=== PATIENT | female | born 1945 | race Caucasian/White ===

== ENCOUNTER 2017-02-14 19:01 | Inpatient (IN) | payer MEDICARE, OTHER ==
[~2017-02-14] VITALS: Ht 157.5 cm; Wt 87.4 kg
[~2017-02-14 19:01] MED LIST: AMI25 PO; BENA40TA54 PO; METF-480 PO; SITA100T8 PO
[2017-02-14] MEDS ORDERED: SODIUM CHLORIDE 0.9% 1L BAG IV* STA (19:31)
[2017-02-14] MEDS ORDERED: ACETAMINOPHEN 500 MG TAB PO STA (19:45)
[2017-02-14 19:53] LABS: ADD UMIC YES; UR ASCORBIC ACID NEGATIVE (NEGATIVE); UR BACTERIA FEW /HPF (NONE SEEN); UR BILIRUBIN (Dip) NEGATIVE (NEGATIVE); UR BLOOD (Dip) 1+ mg/dL (NEGATIVE); UR CLARITY SLIGHTLY CLOUDY (CLEAR); UR COLOR YELLOW (YELLOW); UR GLUCOSE (Dip) 3+ mg/dL (NEGATIVE); UR KETONES (Dip) NEGATIVE (NEGATIVE); UR LEUKOCYTE ESTERASE (Dip) 2+ Leu/ul (NEGATIVE); UR NITRITE (Dip) POSITIVE (NEGATIVE); UR RBC 2 /HPF (0-5); UR TOTAL PROTEIN (Dip) NEGATIVE (NEGATIVE); UR UROBILINOGEN (Dip) NEGATIVE (NEGATIVE)
--- NOTE | 2017-02-14 19:59 | ERA ---
ER Documentation Chief Complaint Date/Time DATE: 02/14/17 TIME: 19:55 Chief Complaint DIFFUSED ABD PAIN/BODYACHE/FEVER/MALAISE X3 DAYS HPI This is a very pleasant 71-year-old Citizen Of [place]-speaking female with a known history of hypertension, hypercholesterolemia and rwy-amldhak-dgrieaull diabetes mellitus. The patient indicates for the past 3 days she has had generalized myalgias malaise with a tactile fever and shaking chills. She complains of epigastric abdominal pain at the onset of her symptoms. She states the epigastric pain is a sharp shooting pain, persistent and does not radiate to the back. The patient indicated she did not take any analgesic medication at home. She never had any similar symptoms in the past. She does indicate that she also developed left lower quadrant abdominal pain several hours prior to arrival. She denies any diarrhea or constipation. She has had no hemoptysis hematemesis or melanotic stools. She states she has had a decrease in appetite secondary to the pain which is 10 out of 10 in intensity. She has no shortness of breath at rest or exertion and no recent travel. She has not developed any rashes. She denies any shortness of breath at rest or exertion. She denies any recent remote blunt or penetrating abdominal wall trauma no previous surgical history of the abdomen. She has not had a productive or nonproductive cough. She has no frequency urgency or dysuria no gross hematuria. She does state that food exacerbates her pain. ROS All systems reviewed and are negative except as per history of present illness. Medications Home Meds Reported Medications Sitagliptin* (Januvia*) 100 Mg Tablet, 100 MG PO DAILY 01/07/13 Benazepril Hcl* (Lotensin*) 40 Mg Tablet, 40 MG PO DAILY 01/07/13 Amitriptyline Hcl* (Elavil*) 25 Mg Tab, 25 MG PO HS 01/07/13 Metformin* (Glucophage*) 850 Mg Tablet, 850 MG PO TID 01/07/13 Allergies Allergies: Coded Allergies: No Known Drug Allergy (Verified Allergy, Mild, 01/07/13) PMhx/Soc History of Surgery: No Anesthesia Reaction: No Hx Neurological Disorder: No Hx Respiratory Disorders: No Hx Cardiac Disorders: Yes (HTN) Hx Psychiatric Problems: No Hx Miscellaneous Medical Probl: Yes (DM) Hx Alcohol Use: No Hx Substance Use: No Hx Tobacco Use: No Smoking Status: Never smoker Physical Exam Vitals Vital Signs Date Time Temp Pulse Resp B/P Pulse Ox O2 Delivery O2 Flow Rate FiO2 02/14/17 22:49 98.6 73 16 109/59 98 Room Air 02/14/17 20:25 100.3 93 16 133/70 97 Room Air 02/14/17 20:13 Nasal Cannula 02/14/17 19:09 103.1 111 29 161/79 98 Physical Exam Constitutional:Well-developed. Well-nourished. He appear to be in significant amount of discomfort. HEENT:Normocephalic. Atraumatic.Pupils were equal round reactive to light. Moist mucous membranes.No tonsillar exudates. Neck: No nuchal rigidity. No lymphadenopathy. No posterior cervical spine tenderness or step-offs. Respiratory: Not using accessory muscles of respiration.Lungs were clear to auscultation bilaterally. No rhonchi. No rales. No wheezing. Cardiovascular: Regular rate regular rhythm.No murmurs. No rubs were appreciated.S1, S2 normal. Distal pulses are palpable 2+ bilaterally. GI: Abdomen was obese so exam is limited due to body habitus. Reproducible epigastric tenderness and tenderness in the left lower quadrant. Non Distended. No pulsatile abdominal masses or bruits. No rebound. No guarding. Bowel sounds were present and normal. Muscle skeletal: Full range of motion of both the upper and lower extremities bilaterally.Normal muscle tone.No assymetrical calf tenderness or swelling. Skin: No petechia, no purpura. No lesions on the palms or the soles of the feet. No maculopapular rash. NEURO: Patient was alert, awake, orientated x3.No facial droop. Gait observed and normal with no ataxia.Speech had regular rate and rhythm. No focal neurological deficits. Result Diagram: 02/14/17194402/14/171944 Results 24 hrs Laboratory Tests Test 02/14/17 19:40 02/14/17 19:45 02/14/17 21:47 Urine Color YELLOW Urine Clarity SLIGHTLY CLOUDY Urine pH 7.0 Urine Specific [place] 1.010 Urine Ketones NEGATIVEmg/dL Urine Nitrite POSITIVEmg/dL Urine Bilirubin NEGATIVEmg/dL Urine Urobilinogen NEGATIVEmg/dL Urine Leukocyte Esterase 2+Fer/ul Urine Microscopic RBC 2/HPF Urine Microscopic WBC 61/HPF Urine Bacteria FEW/HPF Urine Hemoglobin 1+mg/dL Urine Glucose 3+mg/dL Urine Total Protein NEGATIVEmg/dl White Blood Count 7.210^3/ul Red Blood Count 4.2910^6/ul Hemoglobin 12.5g/dl Hematocrit 35.9% Mean Corpuscular Volume 83.7fl Mean Corpuscular Hemoglobin 29.1pg Mean Corpuscular Hemoglobin Concent 34.8g/dl Red Cell Distribution Width 13.7% Platelet Count 89048^3/UL Mean Platelet Volume 10.2fl Neutrophils % 74.9% Lymphocytes % 17.1% Monocytes % 6.5% Eosinophils % 0.8% Basophils % 0.4% Nucleated Red Blood Cells % 0.0/100WBC Neutrophils # 5.410^3/ul Lymphocytes # 1.210^3/ul Monocytes # 0.510^3/ul Eosinophils # 0.110^3/ul Basophils # 0.010^3/ul Nucleated Red Blood Cells # 0.010^3/ul Prothrombin Time 13.5Sec Prothrombin Time Ratio 1.1 INR International Normalized Ratio 1.03 Activated Partial Thromboplast Time 27.8Sec Sodium Level 137mmol/L Potassium Level 4.2mmol/L Chloride Level 96mmol/L Carbon Dioxide Level 25mmol/L Anion Gap 20 Blood Urea Nitrogen 21mg/dl Creatinine 1.03mg/dl Glucose Level 317mg/dl Lactic Acid Level 2.5mmol/L 1.2mmol/L Calcium Level 9.4mg/dl Total Bilirubin 0.3mg/dl Direct Bilirubin 0.00mg/dl Indirect Bilirubin 0.3mg/dl Aspartate Amino Transf (AST/SGOT) 26IU/L Alanine Aminotransferase (ALT/SGPT) 28IU/L Alkaline Phosphatase 119IU/L Troponin I < 0.012ng/ml Total Protein 8.4g/dl Albumin 5.0g/dl Globulin 3.40g/dl Albumin/Globulin Ratio 1.47 Amylase Level 49U/L Lipase 54U/L Current Medications Medications (Trade) Dose Ordered Sig/[place] Route PRN Reason Start Time Stop Time Status Last Admin Dose Admin Sodium Chloride (NS) 2,640 ml BOLUS OVER 2 HOURS STAT IV* 02/14/17 19:31 02/14/17 19:32 DC 02/14/17 19:59 Ibuprofen (Motrin) 800 mg ONCE ONCE PO 02/14/17 20:00 02/14/17 20:01 DC 02/14/17 19:59 Acetaminophen (Tylenol Tab) 1,000 mg ONCE STAT PO 02/14/17 19:45 02/14/17 19:46 DC 02/14/17 19:59 IV Flush 10 ml 10 ml STK-MED ONCE .ROUTE 02/14/17 21:44 02/14/17 21:45 DC 02/14/17 21:57 Sodium Chloride (NS) 100 ml @ ud STK-MED ONCE .ROUTE 02/14/17 21:44 02/14/17 21:45 DC 02/14/17 21:57 Iodixanol 100 ml 100 ml STK-MED ONCE .ROUTE 02/14/17 21:44 02/14/17 21:45 DC 02/14/17 21:57 Ceftriaxone Sodium 50 ml @ 100 mls/hr ONCE STAT IVPB 02/14/17 22:19 02/14/17 22:48 DC 02/14/17 22:44 Vancomycin HCl (Vancocin) 250 ml @ 125 mls/hr ONCE STAT IVPB 02/14/17 22:19 02/15/17 00:18 Procedures/MDM This patient presented to the emergency department with abdominal pain and was seen and evaluated by myself. My differential diagnosis included but was not limited to abdominal aortic aneurysm, appendicitis, pancreatitis, perforated peptic ulcer, perforated viscus, Boerhaaves syndrome or visceral pain such as diverticulitis, DKA, esophagitis, hepatitis or bowel obstruction. The patient was placed on a monitoring engineer, continuous pulse oximetry, and IV access was established by nursing staff. The patient was febrile and did meet SIRS criteria. Blood cultures and urine cultures were obtained. The patient was given antipyretics which included Motrin and acetaminophen. Patient was given a 30 cc/kg bolus of normal saline. The patient was hyperglycemic without ketosis and was given a liter bolus of normal saline. 12 Lead EKG tracing ordered and reviewed by myself showed: Sinus tachycardia 102 bpm and no arrhythmia. DC interval normal. QRS duration normal. No ST segment elevation No ST segment depression. No changes consistent with acute ischemia. I obtained a chest radiograph reviewed by myself as well as the radiologist, one view AP, and there is no evidence of pneumonia or pneumothorax. There is no cardiomegaly Given that the patient had severe epigastric discomfort with left lower quadrant pain I did feel is necessary to obtain a CT scan of the abdomen. This was reviewed by both myself and the radiologist and indicated the followin. No inflammation, mass, or lymphadenopathy. 2. Normal appendix. 3. Mild hepatomegaly. 4. Mild anterior wedging of the T11 and T12 vertebral bodies, possibly representing mild chronic compression fractures. Patient's infectious symptoms have not stabilized and the patient is at risk of rapid decompensation. The patient will be admitted for careful hydration, antibiotic therapy, and infectious source control. Severe Sepsis Assessment: Infectious Source: Patient's infectious symptoms have not stabilized and the patient is at risk of rapid decompensation. The patient will be admitted for careful hydration, antibiotic therapy, and infectious source control. Severe Sepsis Assessment: Infectious Source: pyleonephritis End organ damage indicated by: Lactate > 2.0 mmol/L Severe Sepsis Managment: Blood Cultures X 2 before broad spectrum antibiotics initiated within 3 hours of recognition. 30 ml/kg NS bolus Completed Initial Lactate: 2.2 Repeat Lactate 1.1 I considered further perfusion assessment with CVP measurement, SCVO2, bedside ultrasound volume assessment, passive leg raise, trial of further fluid bolus. And preceded with IV fluids. The patient was started on ceftriaxone and IV vancomycin for suspected urinary tract infection. The patient will be admitted in serious condition to hospitalist Dr. Candelaria to the telemetry service with an anticipated stay of greater than 2 midnights Critical Care: Time: 60 minutes Treatments/Evaluations: Close monitoring and treatment of unstable vital signs, cardiorespiratory, and neurologic status, while maintaining tight balance of fluid, respiratory, and cardiac interventions. Time does not include performing any of the above billable procedures. Departure Diagnosis: Primary Impression: Pyelonephritis Additional Impression: Sepsis Qualified Code: A41.9 - Sepsis, due to unspecified organism Condition: Serious FRANCIS DOS SANTOS Feb 14, 2017 19:59
[2017-02-14] MEDS ORDERED: IBUPROFEN 800 MG TAB PO ONE (20:00)
[2017-02-14 20:01] LABS: ADD SCAN DIFF NO
[2017-02-14 20:03] LABS: BASOPHILS % 0.4 % (0.0-2.0); EOSINOPHILS # 0.1 10^3/ul (0.0-0.5); EOSINOPHILS % 0.8 % (0.0-7.0); HEMATOCRIT 35.9 % (37.0-47.0); HEMOGLOBIN 12.5 g/dl (12.0-16.0); LYMPHOCYTES # 1.2 10^3/ul (0.8-2.9); LYMPHOCYTES % 17.1 % (15.0-51.0); MEAN CORPUSCULAR HEMOGLOBIN 29.1 pg (29.0-33.0); MEAN CORPUSCULAR HGB CONC 34.8 g/dl (32.0-37.0); MEAN CORPUSCULAR VOLUME 83.7 fl (82.0-101.0); MEAN PLATELET VOLUME 10.2 fl (7.4-10.4); MONOCYTE # 0.5 10^3/ul (0.3-0.9); MONOCYTES % 6.5 % (0.0-11.0); NEUTROPHIL # 5.4 10^3/ul (1.6-7.5); NEUTROPHILS % 74.9 % (39.0-77.0); PLATELET COUNT 195 10^3/UL (140-415); RED BLOOD COUNT 4.29 10^6/ul (4.20-5.40); RED CELL DISTRIBUTION WIDTH 13.7 % (11.5-14.5); WHITE BLOOD COUNT 7.2 10^3/ul (4.8-10.8)
--- NOTE | 2017-02-14 20:18 | RADRPT ---
PROCEDURE: XR Chest. CLINICAL INDICATION: Cough and fever. TECHNIQUE: Single frontal view. COMPARISON: None. FINDINGS: The lungs are clear. The heart size is normal. There is no pleural effusion. There is no pneumothorax. IMPRESSION: 1. Normal chest radiograph. RPTAT: QQ .Kostas Weaver MD, Date Time Electronically viewed and signed by .Kostas Weaver MD, on 02/14/2017 20:17 .R/
[2017-02-14 20:20] LABS: INR 1.03; PROTIME 13.5 Sec (12.2-14.2); PT RATIO 1.1
[2017-02-14 20:21] LABS: PARTIAL THROMBOPLASTIN TIME 27.8 Sec (25.0-35.0)
[2017-02-14 20:24] LABS: ALANINE AMINOTRANSFERASE 28 IU/L (13-69); ALBUMIN/GLOBULIN RATIO 1.47; ALKALINE PHOSPHATASE 119 IU/L (42-121); AMYLASE 49 U/L (11-123); ANION GAP 20 (8-16); ASPARTATE AMINO TRANSFERASE 26 IU/L (15-46); BILIRUBIN,INDIRECT 0.3 mg/dl (0-1.1); BILIRUBIN,TOTAL 0.3 mg/dl (0.2-1.3); BLOOD UREA NITROGEN 21 mg/dl (7-20); CALCIUM 9.4 mg/dl (8.4-10.2); CARBON DIOXIDE 25 mmol/L (21-31); CHLORIDE 96 mmol/L (97-110); CREATININE 1.03 mg/dl (0.44-1.00); GLUCOSE 317 mg/dl (70-220); POTASSIUM 4.2 mmol/L (3.5-5.1); SODIUM 137 mmol/L (135-144); TOTAL PROTEIN 8.4 g/dl (6.1-8.1)
[2017-02-14 20:35] LABS: TROPONIN-I < 0.012 ng/ml (0.00-0.12)
[2017-02-14] MEDS ORDERED: IODIXANOL LOCM 100 ML BTL ONE (21:44)
[2017-02-14] MEDS ORDERED: SOD CHLORIDE 0.9% 100 ML ONE (21:44)
[2017-02-14] MEDS ORDERED: VANCOMYCIN 1 GM (PMX) 250 ML IVPB STA (22:19)
[2017-02-14] MEDS ORDERED: CEFTRIAXONE 1 GM/50 ML (PMX) 50 ML IVPB STA (22:19)
--- NOTE | 2017-02-14 22:58 | RADRPT ---
PROCEDURE: CT Abdomen and Pelvis with contrast. CLINICAL INDICATION: Abdominal pain. TECHNIQUE: A CT scan of the abdomen and pelvis was performed with intravenous contrast. The patie nt was scanned following the uncomplicated intravenous administration of 100 cc of Visipaque 320. C oronal and sagittal reformatted images were obtained from the axial source images. Images were revie wed on a high-resolution PACS workstation. CTDIvol: 19.76 mGy. DLP: 1115.23 mGy-cm. One or more of the following dose reduction techniques were used: - Automated exposure control. - Adjustment of the mA and/or kV according to patient size. - Use of iterative reconstruction technique. COMPARISON: None. FINDINGS: There is minimal atelectasis and/or scarring in the lower lungs. The liver is mildly enlarged (18.7 cm). The gallbladder is normal in appearance. The common bile du ct is not dilated. The spleen is not enlarged. No pancreatic lesion is identified and there is no pa ncreatic ductal dilatation. The adrenal glands are unremarkable. The kidneys are normal in size. There is no perinephric fat stranding. No hydronephrosis is seen. The small and large bowel are normal in caliber. There is no bowel wall thickening. The appendix is normal. The urinary bladder is unremarkable. The pelvic organs are within normal limits. No lymphadenopathy is identified. There is no ascites. No pneumoperitoneum is seen. There are minima l arterial calcifications. No suspicious osseous lesion is idenitified. There is mild anterior wedging of the T11 and T12 verte bral bodies. IMPRESSION: 1. No inflammation, mass, or lymphadenopathy. 2. Normal appendix. 3. Mild hepatomegaly. 4. Mild anterior wedging of the T11 and T12 vertebral bodies, possibly representing mild chronic co mpression fractures. RPTAT: HTAR .Levi Valenzuela MD, MD Date Time Electronically viewed and signed by .Levi Valenzuela MD, on 02/14/2017 22:58 .R/
[2017-02-14] MEDS ORDERED: GLUCOSE GEL 15 GRAM TUBE BUCCAL PRN (23:45)
[2017-02-14] MEDS ORDERED: DEXTROSE 50% 50 ML SYRINGE IV PRN ×2 (23:45)
[2017-02-14] MEDS ORDERED: GLUCOSE GEL 15 GRAM TUBE PO PRN ×2 (23:45)
[2017-02-14] MEDS ORDERED: GLUCAGON 1 MG INJ IM PRN (23:45)
[2017-02-15] VITALS (7 sets, daily range): BP systolic 120–128; BP diastolic 59–75; PULSE 69–84; RESP 17–18; TEMP 98.4; Ht 157.5 cm; Wt 87.4 kg
[2017-02-15] MEDS ORDERED: morphine 2 MG INJ IV PRN
[2017-02-15] MEDS ORDERED: BISACODYL (EC) 5 MG TAB PO PRN
[2017-02-15] MEDS ORDERED: DOCUSATE SODIUM 100 MG CAP PO PRN
[2017-02-15] MEDS ORDERED: ACETAMINOPHEN 325 MG TAB PO PRN
[2017-02-15] MEDS ORDERED: NACL 0.9% 3 ML SYG IV SCH
[2017-02-15] MEDS ORDERED: ACCU-CHEK XX SCH (02:00)
--- NOTE | 2017-02-15 04:29 | HP ---
Date/Time of Note Date/Time of Note DATE: 02/15/17 TIME: 04:11 Assessment/Plan VTE Prophylaxis VTE Prophylaxis Intervention: SCD's Assessment/Plan Chief Complaint/Hosp Course This is a 71-year-old female being admitted to telemetry floor for: #1 urosepsis: Tachycardia fevers plus UA showing urinary tract infection. She did receive IV vancomycin and ceftriaxone in the ED. At the current time I will put her on a single agent of ciprofloxacin 400 mg twice daily. Will await urine cultures. Initial lactate was 2.5 with a subsequent lactate decreasing to 1.2. Will continue IV fluid hydration. #2 acute kidney injury: Likely acute though patient's previous creatinine that is recorded was four years ago years ago was 0.7. At the current time will continue to monitor the kidney function. #3 diabetes mellitus: Hold home medications right now especially metformin. Will put patient on insulin sliding scale. Carbohydrate diet. #4 hypertension: We will hold DENY inhibitor at this time secondary to #2. Continue to monitor blood pressures at a as needed medication for blood pressure control if indicated. #5 DVT and GI prophylaxis: SCDs, Protonix Further treatment strategy will be implemented as per the clinical course Problems: HPI/ROS Admit Date/Time Admit Date/Time Hx of Present Illness Chief complaint: Epigastric pain, fever and chills This is a very pleasant 71-year-old [place]-speaking female with a known history of hypertension, hypercholesterolemia and fis-sjckqgy-hnwtsmddp diabetes mellitus. The patient indicates for the past 3 days she has had generalized myalgias malaise with a tactile fever and shaking chills. She complains of epigastric abdominal pain at the onset of her symptoms. She states the epigastric pain is a sharp shooting pain, persistent and does not radiate to the back. The patient indicated she did not take any analgesic medication at home. She never had any similar symptoms in the past. She does indicate that she also developed left lower quadrant abdominal pain several hours prior to arrival. She denies any diarrhea or constipation. She has had no hemoptysis hematemesis or melanotic stools. She states she has had a decrease in appetite secondary to the pain which is 10 out of 10 in intensity. She has no shortness of breath at rest or exertion and no recent travel. She has not developed any rashes. She denies any shortness of breath at rest or exertion. She denies any recent remote blunt or penetrating abdominal wall trauma no previous surgical history of the abdomen. She has not had a productive or nonproductive cough. At times she does state that food makes her pain worse as well. Allergies: NKDA Medications: See KO PEDRO Const: As per HPI Eyes : No pain discharge or redness or change in visual acuity ENT: No pain, sore throat, congestion, congestion, dysphagia or discharge Respiratory: No shortness of breath, cough, sputum, wheezing, or pleuritic pain Cardiovascular: No chest pain, palpitation, PND, or edema GI : As per HPI Genitourinary: As per HPI Musculoskeletal: No joint pain, back pain, neck pain, restricted range of motion in neck or joints Skin: No rash, bruising or hives Neuro: No headache, dizziness, syncope, seizure, focal weakness Endocrine: No polyuria, polydipsia, temperature intolerance Psych: No hallucination, depression, anxiety or suicidal ideation PMH/Family/Social Past Medical History Ddt-amrzmyd-buxfaimnk diabetes, hypertension, hyperlipidemia Past Surgical History Past Surgical Hx: no surgical history Family History Significant Family History: no pertinent family hx Social History Alcohol Use: none Smoking Status: Never smoker Drug Use: none Exam/Review of Systems Vital Signs Vitals Vital Signs Date Time Temp Pulse Resp B/P Pulse Ox O2 Delivery O2 Flow Rate FiO2 02/14/17 22:49 98.6 73 16 109/59 98 Room Air Exam Exam General: This is a well-developed female laying in bed in no acute distress. HEENT: Atraumatic, normocephalic. The pupils are equal, round and reactive. Extraocular motor are intact Neck: Supple with full range of motion. No rigidity or meningismus Chest: Nontender Lungs: Clear to auscultation bilaterally no crackles rales or wheezing Heart: Normal S1-S2, Regular rhythm and rate. No murmur, S3, or S4 Abdomen: Soft, tender to palpation over the suprapubic area, no epigastric pain on my exam, Extremities: Normal to inspection, no edema no cyanosis Neurologic: Normal mental status, speech normal, cranial nerves II through XII are intact, motor and sensory are intact, no focal weakness Additional Comments PROCEDURE: CT Abdomen and Pelvis with contrast. CLINICAL INDICATION: Abdominal pain. TECHNIQUE: A CT scan of the abdomen and pelvis was performed with intravenous contrast. The patient was scanned following the uncomplicated intravenous administration of 100 cc of Visipaque 320. Coronal and sagittal reformatted images were obtained from the axial source images. Images were reviewed on a high-resolution PACS workstation. CTDIvol: 19.76 mGy. DLP: 1115.23 mGy-cm. One or more of the following dose reduction techniques were used: - Automated exposure control. - Adjustment of the mA and/or kV according to patient size. - Use of iterative reconstruction technique. COMPARISON: None. FINDINGS: There is minimal atelectasis and/or scarring in the lower lungs. The liver is mildly enlarged (18.7 cm). The gallbladder is normal in appearance. The common bile duct is not dilated. The spleen is not enlarged. No pancreatic lesion is identified and there is no pancreatic ductal dilatation. The adrenal glands are unremarkable. The kidneys are normal in size. There is no perinephric fat stranding. No hydronephrosis is seen. The small and large bowel are normal in caliber. There is no bowel wall thickening. The appendix is normal. The urinary bladder is unremarkable. The pelvic organs are within normal limits. No lymphadenopathy is identified. There is no ascites. No pneumoperitoneum is seen. There are minimal arterial calcifications. No suspicious osseous lesion is idenitified. There is mild anterior wedging of the T11 and T12 vertebral bodies. IMPRESSION: 1. No inflammation, mass, or lymphadenopathy. 2. Normal appendix. 3. Mild hepatomegaly. 4. Mild anterior wedging of the T11 and T12 vertebral bodies, possibly representing mild chronic compression fractures. RPTAT: HTAR .Levi Valenzuela MD, Date Time Electronically viewed and signed by .Levi Valenzuela MD, MD on 02/14/2017 22:58 PROCEDURE: XR Chest. CLINICAL INDICATION: Cough and fever. TECHNIQUE: Single frontal view. COMPARISON: None. FINDINGS: The lungs are clear. The heart size is normal. There is no pleural effusion. There is no pneumothorax. IMPRESSION: 1. Normal chest radiograph. RPTAT: QQ .Kostas Weaver MD, MD Date Time Electronically viewed and signed by .Kostas Weaver MD, on 02/14/2017 20:17 Labs Result Diagram: 02/14/17194402/14/171944 Medications Medications Current Medications Sodium Chloride (NS) 1,000 ml @ 75 mls/hr [id number] IV ; Start 02/14/17 at 23:51 Acetaminophen (Tylenol Tab) 650 mg Q6H PRN PO PAIN LEVEL 1-3 OR FEVER; Start at 00:00 Morphine Sulfate (morphine) 2 mg Q4H PRN IV PAIN LEVEL 7-10; Start 02/15/17 at 00:00 Docusate Sodium (Colace) 100 mg Q12H PRN PO CONSTIPATION; Start 02/15/17 at 00: 00 Bisacodyl (Dulcolax) 5 mg DAILY PRN PO CONSTIPATION; Start 02/15/17 at 00:00 Pantoprazole (Protonix Iv) 40 mg DAILY@06 IV ; Start 02/15/17 at 06:00 Amitriptyline HCl (Elavil) 25 mg HS PO ; Start 02/15/17 at 21:00 Diagnostic Test (Pha) (Accu-Chek) 1 ea 02 XX ; Start 02/15/17 at 02:00 Miscellaneous Information 1 ea NOTE XX ; Start 02/14/17 at 23:45 Glucose (Glutose) 15 gm Q15M PRN PO DECREASED GLUCOSE; Start 02/14/17 at 23:45 Glucose (Glutose) 22.5 gm Q15M PRN PO DECREASED GLUCOSE; Start 02/14/17 at 23: 45 Dextrose (D50w Syringe) 25 ml Q15M PRN IV DECREASED GLUCOSE; Start 02/14/17 at 23:45 Dextrose (D50w Syringe) 50 ml Q15M PRN IV DECREASED GLUCOSE; Start 02/14/17 at 23:45 Glucagon (Glucagen) 1 mg Q15M PRN IM DECREASED GLUCOSE; Start 02/14/17 at 23:45 Glucose (Glutose) 15 gm Q15M PRN BUCCAL DECREASED GLUCOSE; Start 02/14/17 at 23 :45 SILVIANO COLUNGA Feb 15, 2017 04:21
[2017-02-15 05:43] LABS: ADD SCAN DIFF NO
[2017-02-15 05:47] LABS: ABNORMAL IP MESSAGE 1; BASOPHILS % 0.6 % (0.0-2.0); EOSINOPHILS # 0.1 10^3/ul (0.0-0.5); EOSINOPHILS % 1.3 % (0.0-7.0); HEMATOCRIT 34.4 % (37.0-47.0); HEMOGLOBIN 11.7 g/dl (12.0-16.0); LYMPHOCYTES # 0.6 10^3/ul (0.8-2.9); LYMPHOCYTES % 10.6 % (15.0-51.0); MEAN CORPUSCULAR HEMOGLOBIN 28.9 pg (29.0-33.0); MEAN CORPUSCULAR VOLUME 84.9 fl (82.0-101.0); MEAN PLATELET VOLUME 9.2 fl (7.4-10.4); MONOCYTE # 0.4 10^3/ul (0.3-0.9); NEUTROPHIL # 4.2 10^3/ul (1.6-7.5); NEUTROPHILS % 79.1 % (39.0-77.0); PLATELET COUNT 166 10^3/UL (140-415); RED BLOOD COUNT 4.05 10^6/ul (4.20-5.40); RED CELL DISTRIBUTION WIDTH 13.5 % (11.5-14.5); WHITE BLOOD COUNT 5.3 10^3/ul (4.8-10.8)
[2017-02-15 06:09] LABS: ALBUMIN/GLOBULIN RATIO 1.37; BILIRUBIN,INDIRECT 0.5 mg/dl (0-1.1); BILIRUBIN,TOTAL 0.5 mg/dl (0.2-1.3); CALCIUM 8.8 mg/dl (8.4-10.2); CHOL/HDL RATIO 3.4 RATIO; CREATININE 0.81 mg/dl (0.44-1.00); TOTAL PROTEIN 6.9 g/dl (6.1-8.1)
[2017-02-15 06:39] LABS: THYROID STIMULATING HORMONE 2.98 MIU/L (0.465-4.680)
[2017-02-15] MEDS: PANTOPRAZOLE 40 MG INJ IV SCH (06:53)
[2017-02-15] MEDS: SOD CHLORIDE 0.9% 1,000 ML IV SCH ×3 (06:53→22:38)
[2017-02-15] MEDS: INSULIN ASPART [NOVOLOG] 3 ML PEN SC SCH ×6 (09:01→21:00)
[2017-02-15] MEDS: CIPROFLOXACIN 400MG/D5W 200 ML IVPB SCH ×2 (09:02→20:59)
[2017-02-15] MEDS ORDERED: CEFTRIAXONE 1 GM/50 ML (PMX) 50 ML IVPB SCH (12:00)
[2017-02-15] MEDS ORDERED: hydrALAzine 20 MG INJ IV PRN (12:30)
[2017-02-15] MEDS ORDERED: INSULIN GLARGINE [LANtus] 3 ML PEN SC SCH (20:00)
[2017-02-15] MEDS: AMITRIPTYLINE 25 MG TAB PO SCH (20:59)
[2017-02-16] VITALS (12 sets, daily range): BP systolic 104–150; BP diastolic 57–72; PULSE 70–86; RESP 18–19
[2017-02-16] MEDS: ACCU-CHEK XX SCH (02:00)
[2017-02-16] MEDS: PANTOPRAZOLE 40 MG INJ IV SCH (05:44)
[2017-02-16 07:36] LABS: ADD SCAN DIFF NO
[2017-02-16 07:40] LABS: BASOPHILS % 0.4 % (0.0-2.0); EOSINOPHILS # 0.1 10^3/ul (0.0-0.5); EOSINOPHILS % 2.3 % (0.0-7.0); HEMATOCRIT 34.8 % (37.0-47.0); HEMOGLOBIN 11.9 g/dl (12.0-16.0); LYMPHOCYTES # 1.8 10^3/ul (0.8-2.9); LYMPHOCYTES % 34.6 % (15.0-51.0); MEAN CORPUSCULAR HEMOGLOBIN 28.4 pg (29.0-33.0); MEAN CORPUSCULAR HGB CONC 34.2 g/dl (32.0-37.0); MEAN CORPUSCULAR VOLUME 83.1 fl (82.0-101.0); MEAN PLATELET VOLUME 9.9 fl (7.4-10.4); MONOCYTE # 0.6 10^3/ul (0.3-0.9); MONOCYTES % 12.2 % (0.0-11.0); NEUTROPHIL # 2.6 10^3/ul (1.6-7.5); NEUTROPHILS % 50.3 % (39.0-77.0); PLATELET COUNT 180 10^3/UL (140-415); RED BLOOD COUNT 4.19 10^6/ul (4.20-5.40); RED CELL DISTRIBUTION WIDTH 13.8 % (11.5-14.5); WHITE BLOOD COUNT 5.2 10^3/ul (4.8-10.8)
[2017-02-16 08:11] LABS: CALCIUM 8.8 mg/dl (8.4-10.2); CREATININE 0.78 mg/dl (0.44-1.00); POTASSIUM 3.8 mmol/L (3.5-5.1)
[2017-02-16 08:36] LABS: MAGNESIUM 1.5 mg/dl (1.7-2.5); PHOSPHORUS 2.8 mg/dl (2.5-4.9)
[2017-02-16] MEDS: BENAZEPRIL 40 MG TAB PO SCH (08:40)
[2017-02-16] MEDS: INSULIN ASPART [NOVOLOG] 3 ML PEN SC SCH ×7 (08:41→20:49)
[2017-02-16] MEDS: CIPROFLOXACIN 400MG/D5W 200 ML IVPB SCH ×2 (09:48→20:49)
[2017-02-16] MEDS: SOD CHLORIDE 0.9% 1,000 ML IV SCH (12:35)
[2017-02-16] MEDS ORDERED: MAGNESIUM SULFATE 2 GM/50 ML 50 ML IVPB ONE (15:30)
--- NOTE | 2017-02-16 16:17 | PN ---
Date/Time of Note Date/Time of Note DATE: 02/16/17 TIME: 16:15 Assessment/Plan VTE Prophylaxis VTE Prophylaxis Intervention: SCD's Lines/Catheters IV Catheter Type (from Nrsg): Peripheral IV Urinary Cath still in place: Yes Reason Cath still needed: other (indicate) (montior I&O) Assessment/Plan Chief Complaint/Hosp Course Assessment and plan 1. Sepsis secondary to UTI. Patient noted with E. coli in the urine. Continue with antibiotics. Improving at present. 2. Diabetes. Noted with A1c of 11.6. Still remains high blood glucose. Insulin regimen adjusted. Will await for clinical improvement. 3. Hypomagnesemia. Will replete and check level in a.m. 4. Essential hypertension. Stable at present. Will monitor for now. Provide with antihypertensives as needed Disposition and plan: Continue antibiotics. Insulin regimen adjusted. Will get rn diabetes educator to follow. Discussed plan of care with Dr. Blum Problems: Subjective 24 Hr Interval Summary Free Text/Dictation Denies any dysuria at this time. No other specific complaints Exam/Review of Systems Vital Signs Vitals Vital Signs Date Time Temp Pulse Resp B/P Pulse Ox O2 Delivery O2 Flow Rate FiO2 02/16/17 16:12 70 02/16/17 15:46 98.1 19 114/57 90 02/15/17 10:00 Room Air Intake and Output 02/15/17 02/15/17 02/16/17 15:00 23:00 07:00 Intake Total 1400 ml 300 ml Balance 1400 ml 300 ml Exam Constitutional: alert, oriented Psych: nl mood/affect Head: normocephalic Neck: supple, No jvd Respiratory: clear to auscultation, normal air movement Cardiovascular: regular rate and rhythm Gastrointestinal: non-tender, soft Musculoskeletal: nl extremities to inspection, nl gait and stance Neurological: TRAUMA THERAPIST II-XII intact, nl mental status, nl speech Results Result Diagram: 02/16/1715 02/16/1715 Results 24 hrs Laboratory Tests Test 02/15/17 17:17 02/15/17 20:11 02/16/17 02:28 02/16/17 06:14 Bedside Glucose 296 H 314 H 249 H Phosphorus Level 2.8 Magnesium Level 1.5 L Test 02/16/17 06:15 02/16/17 07:57 02/16/17 12:02 White Blood Count 5.2 Red Blood Count 4.19 L Hemoglobin 11.9 L Hematocrit 34.8 L Mean Corpuscular Volume 83.1 Mean Corpuscular Hemoglobin 28.4 L Mean Corpuscular Hemoglobin Concent 34.2 Red Cell Distribution Width 13.8 Platelet Count 180 Mean Platelet Volume 9.9 Neutrophils % 50.3 Lymphocytes % 34.6 Monocytes % 12.2 H Eosinophils % 2.3 Basophils % 0.4 Nucleated Red Blood Cells % 0.0 Neutrophils # 2.6 Lymphocytes # 1.8 Monocytes # 0.6 Eosinophils # 0.1 Basophils # 0.0 Nucleated Red Blood Cells # 0.0 Sodium Level 140 Potassium Level 3.8 Chloride Level 101 Carbon Dioxide Level 23 Anion Gap 20 H Blood Urea Nitrogen 12 Creatinine 0.78 Glucose Level 253 H Calcium Level 8.8 Bedside Glucose 260 H 280 H Medications Medications Current Medications Sodium Chloride (NS) 1,000 ml @ 75 mls/hr [id number] IV Last administered on 02/16 12:35; Admin Dose 75 MLS/HR; Start 02/14/17 at 23:51 Acetaminophen (Tylenol Tab) 650 mg Q6H PRN PO PAIN LEVEL 1-3 OR FEVER; Start at 00:00 Morphine Sulfate (morphine) 2 mg Q4H PRN IV PAIN LEVEL 7-10; Start 02/15/17 at 00:00 Docusate Sodium (Colace) 100 mg Q12H PRN PO CONSTIPATION; Start 02/15/17 at 00: 00 Bisacodyl (Dulcolax) 5 mg DAILY PRN PO CONSTIPATION; Start 02/15/17 at 00:00 Pantoprazole (Protonix Iv) 40 mg DAILY@06 IV Last administered on 02/16/17 05: 44; Admin Dose 40 MG; Start 02/15/17 at 06:00 Amitriptyline HCl (Elavil) 25 mg HS PO Last administered on 02/15/17 20:59; Admin Dose 25 MG; Start 02/15/17 at 21:00 Miscellaneous Information 1 ea NOTE XX ; Start 02/14/17 at 23:45 Glucose (Glutose) 15 gm Q15M PRN PO DECREASED GLUCOSE; Start 02/14/17 at 23:45 Glucose (Glutose) 22.5 gm Q15M PRN PO DECREASED GLUCOSE; Start 02/14/17 at 23: 45 Dextrose (D50w Syringe) 25 ml Q15M PRN IV DECREASED GLUCOSE; Start 02/14/17 at 23:45 Dextrose (D50w Syringe) 50 ml Q15M PRN IV DECREASED GLUCOSE; Start 02/14/17 at 23:45 Glucagon (Glucagen) 1 mg Q15M PRN IM DECREASED GLUCOSE; Start 02/14/17 at 23:45 Glucose 15 gm 15 gm Q15M PRN BUCCAL DECREASED GLUCOSE; Start 02/14/17 at 23:45 Ciprofloxacin/ Dextrose (Cipro Ivpb) 200 ml @ 200 mls/hr Q12 IVPB Last administered on 02/16/17 09:48; Admin Dose 200 MLS/HR; Start 02/15/17 at 09:00 Hydralazine HCl (Apresoline) 10 mg Q6H PRN IV SBP>160; Start 02/15/17 at 12:30 Benazepril HCl (Lotensin) 40 mg DAILY PO Last administered on 02/16/17 08:40; Admin Dose 40 MG; Start 02/16/17 at 09:00 Diagnostic Test (Pha) (Accu-Chek) 1 ea 02 XX ; Start 02/16/17 at 02:00 Insulin Glargine 26 unit 26 unit DAILY@20 SC ; Start 02/16/17 at 20:00 Magnesium Sulfate (Magnesium Sulfate 2 Gm/50 ml) 50 ml @ 25 mls/hr ONCE ONCE IVPB ; Start 02/16/17 at 15:30; Stop 02/16/17 at 17:29 DOMINIQUE MATHEW Feb 16, 2017 16:17
[2017-02-16] MEDS ORDERED: INSULIN GLARGINE [LANtus] 3 ML PEN SC SCH (20:00)
[2017-02-16] MEDS: AMITRIPTYLINE 25 MG TAB PO SCH (20:50)
[2017-02-17] VITALS (13 sets, daily range): BP systolic 117–136; BP diastolic 55–82; PULSE 71–90; RESP 18–21
[2017-02-17] MEDS: ACCU-CHEK XX SCH (01:44)
[2017-02-17] MEDS: PANTOPRAZOLE 40 MG INJ IV SCH (05:30)
[2017-02-17] MEDS: SOD CHLORIDE 0.9% 1,000 ML IV SCH ×3 (05:31→20:31)
[2017-02-17 08:15] LABS: ADD SCAN DIFF NO
[2017-02-17] MEDS: INSULIN ASPART [NOVOLOG] 3 ML PEN SC SCH ×6 (08:31→20:35)
[2017-02-17 08:36] LABS: BASOPHILS % 0.5 % (0.0-2.0); EOSINOPHILS # 0.2 10^3/ul (0.0-0.5); EOSINOPHILS % 2.3 % (0.0-7.0); HEMATOCRIT 40.2 % (37.0-47.0); HEMOGLOBIN 13.2 g/dl (12.0-16.0); LYMPHOCYTES # 2.5 10^3/ul (0.8-2.9); LYMPHOCYTES % 38.2 % (15.0-51.0); MEAN CORPUSCULAR HEMOGLOBIN 27.6 pg (29.0-33.0); MEAN CORPUSCULAR HGB CONC 32.8 g/dl (32.0-37.0); MEAN CORPUSCULAR VOLUME 84.1 fl (82.0-101.0); MEAN PLATELET VOLUME 9.6 fl (7.4-10.4); MONOCYTE # 0.6 10^3/ul (0.3-0.9); MONOCYTES % 9.2 % (0.0-11.0); NEUTROPHIL # 3.2 10^3/ul (1.6-7.5); NEUTROPHILS % 49.3 % (39.0-77.0); PLATELET COUNT 246 10^3/UL (140-415); RED BLOOD COUNT 4.78 10^6/ul (4.20-5.40); RED CELL DISTRIBUTION WIDTH 13.8 % (11.5-14.5); WHITE BLOOD COUNT 6.5 10^3/ul (4.8-10.8)
[2017-02-17 08:41] LABS: CALCIUM 9.5 mg/dl (8.4-10.2); CREATININE 0.95 mg/dl (0.44-1.00); MAGNESIUM 1.8 mg/dl (1.7-2.5); POTASSIUM 4.4 mmol/L (3.5-5.1)
[2017-02-17] MEDS: BENAZEPRIL 40 MG TAB PO SCH (08:59)
[2017-02-17] MEDS: CIPROFLOXACIN 400MG/D5W 200 ML IVPB SCH (08:59)
[2017-02-17] MEDS ORDERED: INSULIN ASPART [NOVOLOG] 3 ML PEN SC SCH (12:30)
--- NOTE | 2017-02-17 14:06 | PN ---
Date/Time of Note Date/Time of Note DATE: 02/17/17 TIME: 13:47 Assessment/Plan VTE Prophylaxis VTE Prophylaxis Intervention: SCD's Lines/Catheters IV Catheter Type (from Nrs): Peripheral IV Urinary Cath still in place: No Assessment/Plan Chief Complaint/Hosp Course Assessment and plan 1. Sepsis secondary to UTI. Patient noted with E. coli in the urine. . Improving at present. Continue regimen 2. Diabetes. Noted with A1c of 11.6. Still remains high blood glucose. hospice educator followed the patient today. Still with elevated blood glucose. Will adjust regimen. Will get sealer aircraft pending clinical course 3. Hypomagnesemia. Monitor and replete as needed 4. Essential hypertension. Stable at present. Will monitor for now. Provide with antihypertensives as needed Disposition and plan: Continue antibiotics. Continue with insulin regimen. Adjust as needed. Discussed plan of care with Dr. Blum Problems: Subjective 24 Hr Interval Summary Free Text/Dictation No specific complaints at this time. Appears comfortable. Exam/Review of Systems Vital Signs Vitals Vital Signs Date Time Temp Pulse Resp B/P Pulse Ox O2 Delivery O2 Flow Rate FiO2 02/17/17 12:15 90 02/17/17 11:32 97.6 18 128/70 97 02/15/17 10:00 Room Air Intake and Output 02/16/17 02/16/17 02/17/17 15:00 23:00 07:00 Intake Total 200 ml 2300 ml 1250 ml Balance 200 ml 2300 ml 1250 ml Exam Constitutional: alert, oriented Psych: nl mood/affect Eyes: nl conjunctiva Neck: supple, No jvd Respiratory: clear to auscultation, normal air movement Gastrointestinal: non-tender, soft Musculoskeletal: nl extremities to inspection, nl gait and stance Results Result Diagram: 02/17/17 0801 02/17/17 0801 Results 24 hrs Laboratory Tests Test 02/16/17 16:44 02/16/17 20:46 02/17/17 01:40 02/17/17 08:01 Bedside Glucose 240 H 235 H 242 H White Blood Count 6.5 # Red Blood Count 4.78 Hemoglobin 13.2 Hematocrit 40.2 Mean Corpuscular Volume 84.1 Mean Corpuscular Hemoglobin 27.6 L Mean Corpuscular Hemoglobin Concent 32.8 Red Cell Distribution Width 13.8 Platelet Count 246 # Mean Platelet Volume 9.6 Neutrophils % 49.3 Lymphocytes % 38.2 Monocytes % 9.2 Eosinophils % 2.3 Basophils % 0.5 Nucleated Red Blood Cells % 0.0 Neutrophils # 3.2 Lymphocytes # 2.5 Monocytes # 0.6 Eosinophils # 0.2 Basophils # 0.0 Nucleated Red Blood Cells # 0.0 Sodium Level 143 Potassium Level 4.4 Chloride Level 100 Carbon Dioxide Level 24 Anion Gap 23 H Blood Urea Nitrogen 14 Creatinine 0.95 Glucose Level 279 H Calcium Level 9.5 Magnesium Level 1.8 Test 02/17/17 08:14 02/17/17 11:52 02/17/17 11:54 Bedside Glucose 282 H 427 *H 400 H Medications Medications Current Medications Sodium Chloride (NS) 1,000 ml @ 75 mls/hr [id number] IV Last administered on 02/17 05:31; Admin Dose 75 MLS/HR; Start 02/14/17 at 23:51 Acetaminophen (Tylenol Tab) 650 mg Q6H PRN PO PAIN LEVEL 1-3 OR FEVER; Start at 00:00 Morphine Sulfate (morphine) 2 mg Q4H PRN IV PAIN LEVEL 7-10; Start 02/15/17 at 00:00 Docusate Sodium (Colace) 100 mg Q12H PRN PO CONSTIPATION; Start 02/15/17 at 00: 00 Bisacodyl (Dulcolax) 5 mg DAILY PRN PO CONSTIPATION; Start 02/15/17 at 00:00 Pantoprazole (Protonix Iv) 40 mg DAILY@06 IV Last administered on 02/17/17 05: 30; Admin Dose 40 MG; Start 02/15/17 at 06:00 Amitriptyline HCl (Elavil) 25 mg HS PO Last administered on 02/16/17 20:50; Admin Dose 25 MG; Start 02/15/17 at 21:00 Miscellaneous Information 1 ea NOTE XX ; Start 02/14/17 at 23:45 Glucose (Glutose) 15 gm Q15M PRN PO DECREASED GLUCOSE; Start 02/14/17 at 23:45 Glucose (Glutose) 22.5 gm Q15M PRN PO DECREASED GLUCOSE; Start 02/14/17 at 23: 45 Dextrose (D50w Syringe) 25 ml Q15M PRN IV DECREASED GLUCOSE; Start 02/14/17 at 23:45 Dextrose (D50w Syringe) 50 ml Q15M PRN IV DECREASED GLUCOSE; Start 02/14/17 at 23:45 Glucagon (Glucagen) 1 mg Q15M PRN IM DECREASED GLUCOSE; Start 02/14/17 at 23:45 Glucose (Glutose) 15 gm Q15M PRN BUCCAL DECREASED GLUCOSE; Start 02/14/17 at 23 :45 Hydralazine HCl (Apresoline) 10 mg Q6H PRN IV SBP>160; Start 02/15/17 at 12:30 Benazepril HCl (Lotensin) 40 mg DAILY PO Last administered on 02/17/17 08:59; Admin Dose 40 MG; Start 02/16/17 at 09:00 Diagnostic Test (Pha) (Accu-Chek) 1 ea 02 XX Last administered on 02/17/17 01: 44; Admin Dose 1 EA; Start 02/16/17 at 02:00 Insulin Glargine (Lantus) 33 unit DAILY@20 SC ; Start 02/17/17 at 20:00 DOMINIQUE MATHEW Feb 17, 2017 13:57
[2017-02-17] MEDS: CIPROFLOXACIN 500 MG TAB PO SCH (17:29)
[2017-02-17] MEDS ORDERED: INSULIN GLARGINE [LANtus] 3 ML PEN SC SCH ×2 (20:00)
[2017-02-17] MEDS: AMITRIPTYLINE 25 MG TAB PO SCH (20:30)
[2017-02-18] VITALS (11 sets, daily range): BP systolic 114–147; BP diastolic 65–74; PULSE 69–98; RESP 17–18
[2017-02-18] MEDS: ACCU-CHEK XX SCH (02:00)
[2017-02-18] MEDS: CIPROFLOXACIN 500 MG TAB PO SCH ×2 (05:43→17:32)
[2017-02-18] MEDS: PANTOPRAZOLE (EC) 40 MG TAB PO SCH (05:43)
[2017-02-18 07:42] LABS: ADD SCAN DIFF NO
[2017-02-18 07:45] LABS: BASOPHILS % 0.4 % (0.0-2.0); EOSINOPHILS # 0.2 10^3/ul (0.0-0.5); EOSINOPHILS % 3.7 % (0.0-7.0); HEMATOCRIT 33.9 % (37.0-47.0); HEMOGLOBIN 11.4 g/dl (12.0-16.0); LYMPHOCYTES # 1.6 10^3/ul (0.8-2.9); LYMPHOCYTES % 31.3 % (15.0-51.0); MEAN CORPUSCULAR HEMOGLOBIN 28.3 pg (29.0-33.0); MEAN CORPUSCULAR HGB CONC 33.6 g/dl (32.0-37.0); MEAN CORPUSCULAR VOLUME 84.1 fl (82.0-101.0); MEAN PLATELET VOLUME 9.4 fl (7.4-10.4); MONOCYTE # 0.5 10^3/ul (0.3-0.9); MONOCYTES % 10.4 % (0.0-11.0); NEUTROPHIL # 2.8 10^3/ul (1.6-7.5); NEUTROPHILS % 53.8 % (39.0-77.0); PLATELET COUNT 205 10^3/UL (140-415); RED BLOOD COUNT 4.03 10^6/ul (4.20-5.40); RED CELL DISTRIBUTION WIDTH 13.6 % (11.5-14.5); WHITE BLOOD COUNT 5.2 10^3/ul (4.8-10.8)
[2017-02-18] MEDS: SOD CHLORIDE 0.9% 1,000 ML IV SCH ×2 (07:51→21:42)
[2017-02-18 08:02] LABS: CALCIUM 8.9 mg/dl (8.4-10.2); CREATININE 0.88 mg/dl (0.44-1.00); POTASSIUM 4.1 mmol/L (3.5-5.1)
[2017-02-18] MEDS: INSULIN ASPART [NOVOLOG] 3 ML PEN SC SCH ×7 (08:55→21:41)
[2017-02-18] MEDS: BENAZEPRIL 40 MG TAB PO SCH (08:58)
--- NOTE | 2017-02-18 15:29 | PN ---
Date/Time of Note Date/Time of Note DATE: 02/18/17 TIME: 15:27 Assessment/Plan VTE Prophylaxis VTE Prophylaxis Intervention: SCD's Lines/Catheters [facility] Peripheral IV Urinary Cath still in place: No Assessment/Plan Chief Complaint/Hosp Course Assessment and plan 1. Sepsis secondary to UTI. Patient noted with E. coli in the urine. . Improving at present. Continue regimen 2. Diabetes. Noted with A1c of 11.6. Will monitor with elevated blood glucose but improved today. Insulin regimen adjusted again. 3. Hypomagnesemia. Monitor and replete as needed 4. Essential hypertension. Stable at present. Will monitor for now. Provide with antihypertensives as needed Disposition and plan: Still with high blood glucose better today. Anticipate discharge within the next 24 hours if blood glucose trend improves. Insulin regimen was adjusted. Discussed plan of care with Dr. Blum Problems: Subjective 24 Hr Interval Summary Free Text/Dictation No apparent distress seen. Comfortable at present Exam/Review of Systems Vital Signs Vitals Vital Signs Date Time Temp Pulse Resp B/P Pulse Ox O2 Delivery O2 Flow Rate FiO2 02/18/17 12:29 79 02/18/17 11:33 98.4 18 124/69 97 02/17/17 20:00 Room Air Intake and Output 02/17/17 02/17/17 02/18/17 15:00 23:00 07:00 Intake Total 100 ml 640 ml Balance 100 ml 640 ml Exam Constitutional: alert, oriented Psych: no complaints Neck: supple, No jvd Respiratory: normal air movement Cardiovascular: nl pulses, regular rate and rhythm Gastrointestinal: non-tender, soft Musculoskeletal: nl gait and stance Neurological: STATE HISTORICAL SOCIETY DIRECTOR II-XII intact, nl mental status, nl speech Results Result Diagram: 02/18/1702 02/18/17701 Results 24 hrs Laboratory Tests Test 02/17/17 17:00 02/17/17 20:34 02/18/17 07:02 02/18/17 08:51 Bedside Glucose 213 176 242 H White Blood Count 5.2 Red Blood Count 4.03 L Hemoglobin 11.4 L Hematocrit 33.9 L Mean Corpuscular Volume 84.1 Mean Corpuscular Hemoglobin 28.3 L Mean Corpuscular Hemoglobin Concent 33.6 Red Cell Distribution Width 13.6 Platelet Count 205 Mean Platelet Volume 9.4 Neutrophils % 53.8 Lymphocytes % 31.3 Monocytes % 10.4 Eosinophils % 3.7 Basophils % 0.4 Nucleated Red Blood Cells % 0.0 Neutrophils # 2.8 Lymphocytes # 1.6 Monocytes # 0.5 Eosinophils # 0.2 Basophils # 0.0 Nucleated Red Blood Cells # 0.0 Sodium Level 143 Potassium Level 4.1 Chloride Level 104 Carbon Dioxide Level 25 Anion Gap 18 H Blood Urea Nitrogen 14 Creatinine 0.88 Glucose Level 202 Calcium Level 8.9 Test 02/18/17 12:54 Bedside Glucose 290 H Medications Medications Current Medications Sodium Chloride (NS) 1,000 ml @ 75 mls/hr [id number] IV Last administered on 02/17 20:31; Admin Dose 75 MLS/HR; Start 02/14/17 at 23:51 Acetaminophen (Tylenol Tab) 650 mg Q6H PRN PO PAIN LEVEL 1-3 OR FEVER; Start at 00:00 Morphine Sulfate (morphine) 2 mg Q4H PRN IV PAIN LEVEL 7-10; Start 02/15/17 at 00:00 Docusate Sodium (Colace) 100 mg Q12H PRN PO CONSTIPATION; Start 02/15/17 at 00: 00 Bisacodyl (Dulcolax) 5 mg DAILY PRN PO CONSTIPATION; Start 02/15/17 at 00:00 Amitriptyline HCl (Elavil) 25 mg HS PO Last administered on 02/17/17 20:30; Admin Dose 25 MG; Start 02/15/17 at 21:00 Miscellaneous Information 1 ea NOTE XX ; Start 02/14/17 at 23:45 Glucose (Glutose) 15 gm Q15M PRN PO DECREASED GLUCOSE; Start 02/14/17 at 23:45 Glucose (Glutose) 22.5 gm Q15M PRN PO DECREASED GLUCOSE; Start 02/14/17 at 23: 45 Dextrose (D50w Syringe) 25 ml Q15M PRN IV DECREASED GLUCOSE; Start 02/14/17 at 23:45 Dextrose (D50w Syringe) 50 ml Q15M PRN IV DECREASED GLUCOSE; Start 02/14/17 at 23:45 Glucagon (Glucagen) 1 mg Q15M PRN IM DECREASED GLUCOSE; Start 02/14/17 at 23:45 Glucose (Glutose) 15 gm Q15M PRN BUCCAL DECREASED GLUCOSE; Start 02/14/17 at 23 :45 Hydralazine HCl (Apresoline) 10 mg Q6H PRN IV SBP>160; Start 02/15/17 at 12:30 Benazepril HCl (Lotensin) 40 mg DAILY PO Last administered on 02/18/17 08:58; Admin Dose 40 MG; Start 02/16/17 at 09:00 Diagnostic Test (Pha) (Accu-Chek) 1 ea 02 XX Last administered on 02/17/17 01: 44; Admin Dose 1 EA; Start 02/16/17 at 02:00 Ciprofloxacin (Cipro) 500 mg BID@06,18 PO Last administered on 02/18/17 05:43 ; Admin Dose 500 MG; Start 02/17/17 at 18:00 Pantoprazole (Protonix Tab) 40 mg DAILY@06 PO Last administered on 02/18/17 05 :43; Admin Dose 40 MG; Start 02/18/17 at 06:00 Insulin Glargine (Lantus) 42 unit DAILY@20 SC ; Start 02/18/17 at 20:00 DOMINIQUE MATHEW Feb 18, 2017 15:28
[2017-02-18] MEDS ORDERED: INSULIN GLARGINE [LANtus] 3 ML PEN SC SCH (20:00)
[2017-02-18] MEDS: AMITRIPTYLINE 25 MG TAB PO SCH (21:39)
[2017-02-19 02:00] VITALS: BP 105/63; RESP 19
[2017-02-19] MEDS: ACCU-CHEK XX SCH (02:00)
[2017-02-19] MEDS: PANTOPRAZOLE (EC) 40 MG TAB PO SCH (05:17)
[2017-02-19] MEDS: CIPROFLOXACIN 500 MG TAB PO SCH (05:17)
[2017-02-19 05:50] LABS: ADD SCAN DIFF NO
[2017-02-19 05:58] LABS: BASOPHILS % 0.6 % (0.0-2.0); EOSINOPHILS # 0.2 10^3/ul (0.0-0.5); EOSINOPHILS % 4.4 % (0.0-7.0); HEMATOCRIT 34.3 % (37.0-47.0); HEMOGLOBIN 11.3 g/dl (12.0-16.0); LYMPHOCYTES # 1.7 10^3/ul (0.8-2.9); LYMPHOCYTES % 33.3 % (15.0-51.0); MEAN CORPUSCULAR HGB CONC 32.9 g/dl (32.0-37.0); MEAN CORPUSCULAR VOLUME 85.1 fl (82.0-101.0); MEAN PLATELET VOLUME 9.3 fl (7.4-10.4); MONOCYTE # 0.5 10^3/ul (0.3-0.9); MONOCYTES % 9.2 % (0.0-11.0); NEUTROPHIL # 2.7 10^3/ul (1.6-7.5); NEUTROPHILS % 52.1 % (39.0-77.0); PLATELET COUNT 216 10^3/UL (140-415); RED BLOOD COUNT 4.03 10^6/ul (4.20-5.40); RED CELL DISTRIBUTION WIDTH 13.9 % (11.5-14.5); WHITE BLOOD COUNT 5.2 10^3/ul (4.8-10.8)
[2017-02-19 06:53] LABS: CALCIUM 9.4 mg/dl (8.4-10.2); CREATININE 0.9 mg/dl (0.44-1.00); POTASSIUM 4.3 mmol/L (3.5-5.1)
[2017-02-19] MEDS: INSULIN ASPART [NOVOLOG] 3 ML PEN SC SCH ×4 (08:01→12:12)
[2017-02-19] MEDS: BENAZEPRIL 40 MG TAB PO SCH (08:06)
[2017-02-19 08:23] VITALS: BP 110/72; RESP 16
[2017-02-19] MEDS: SOD CHLORIDE 0.9% 1,000 ML IV SCH ×2 (10:31→12:13)
[2017-02-19 14:00] VITALS: BP 126/62; RESP 18
[2017-02-19] MEDS ORDERED: NOVO3I SC (14:27)
[2017-02-19] MEDS ORDERED: CIPR500T4 PO (14:27)
[2017-02-19] MEDS ORDERED: LANT3I SC (14:27)
--- NOTE | 2017-02-19 14:33 | PDOCDIS ---
Discharge Instructions DIAGNOSIS Discharge Diagnosis 1. Sepsis secondary to UTI 2. Diabetes with A1c of 11.6 3. Hypomagnesemia 4. Essential hypertension CONDITION Patient Condition: Stable HOME CARE INSTRUCTIONS: Special Diet: Carb controlled FOLLOW UP/APPOINTMENTS Follow-up Plan 1. Follow up with Dr. Farhat Mancera in one week DOMINIQUE MATHEW Feb 19, 2017 14:33
--- NOTE | 2017-02-19 16:30 | DS ---
Date/Time of Note Date/Time of Note DATE: 02/19/17 TIME: 16:26 Discharge Summary Admission/Discharge Info Admit Date/Time Feb 14, 2017 at 23:51 Discharge Date/Time Discharge Diagnosis 1. Sepsis secondary to UTI 2. Diabetes with A1c of 11.6 3. Hypomagnesemia 4. Essential hypertension Patient Condition: Stable Hospital Course This is a 71 year old female with history of hypertension, dyslipidemia, diabetes, who came to [facility] due to reports of general pain/weakness. Patient also reported having left lower quadrant abdominal pain. She denies any diarrhea or constipation. She has strong epigastric pain persistent did not radiate to her back. She subsequently went to [facility] for further evaluation. Upon examination she was found to have UTI with E. coli and was septic. She was placed on appropriate antibiotics with good response. Additionally she was found to have uncontrolled blood glucose with A1c of 11.6. She did report that her blood glucose at home is typically around 300. She was seen by interface engineer. We did also adjust her insulin regimen and did have better control. During her course of stay she did improve. She did report us epigastric abdominal pain and she was afebrile on discharge. The plan of care was discussed with patient and patient did verbalize her understanding. On the day of discharge patient was in stable condition Discussed plan of care with Dr. Blum [facility] Active Scripts Insulin Aspart* (Novolog Insulin Pen*) 100 Unit/Ml Soln, 14 UNIT SC WITH MEALS for 30 Days Prov:DOMINIQUE MATHEW 02/19/17 Insulin Glargine* (Lantus*) 100 Unit/Ml Soln, 42 UNIT SC DAILY@20 for 30 Days Prov:DOMINIQUE MATHEW 02/19/17 Ciprofloxacin Hcl* (Ciprofloxacin Hcl*) 500 Mg Tablet, 500 MG PO BID@06,18, #6 TAB Prov:DOMINIQUE MATHEW 02/19/17 Reported Medications Benazepril Hcl* (Lotensin*) 40 Mg Tablet, 40 MG PO DAILY 01/07/13 Amitriptyline Hcl* (Elavil*) 25 Mg Tab, 25 MG PO HS 01/07/13 Discontinued Reported Medications Sitagliptin* (Januvia*) 100 Mg Tablet, 100 MG PO DAILY 01/07/13 Metformin* (Glucophage*) 850 Mg Tablet, 850 MG PO TID 01/07/13 Follow-up Plan CONDITION Patient Condition: Stable HOME CARE INSTRUCTIONS: Special Diet: Carb controlled FOLLOW UP/APPOINTMENTS Follow-up Plan 1. Follow up with Dr. Farhat Mancera in one week Primary Care Provider Not On Staff Doctor Time spent on discharge: > 30 minutes Pending Labs Laboratory Tests Test 02/18/17 17:31 02/18/17 21:38 02/19/17 01:59 02/19/17 05:14 Bedside Glucose 175mg/dL (70-220) 235mg/dL (70-220) 179mg/dL (70-220) White Blood Count 5.210^3/ul (4.8-10.8) Red Blood Count 4.0310^6/ul (4.20-5.40) Hemoglobin 11.3g/dl (12.0-16.0) Hematocrit 34.3% (37.0-47.0) Mean Corpuscular Volume 85.1fl (82.0-101.0) Mean Corpuscular Hemoglobin 28.0pg (29.0-33.0) Mean Corpuscular Hemoglobin Concent 32.9g/dl (32.0-37.0) Red Cell Distribution Width 13.9% (11.5-14.5) Platelet Count 92938^3/UL (140-415) Mean Platelet Volume 9.3fl (7.4-10.4) Neutrophils % 52.1% (39.0-77.0) Lymphocytes % 33.3% (15.0-51.0) Monocytes % 9.2% (0.0-11.0) Eosinophils % 4.4% (0.0-7.0) Basophils % 0.6% (0.0-2.0) Nucleated Red Blood Cells % 0.0/100WBC (0.0-0.0) Neutrophils # 2.710^3/ul (1.6-7.5) Lymphocytes # 1.710^3/ul (0.8-2.9) Monocytes # 0.510^3/ul (0.3-0.9) Eosinophils # 0.210^3/ul (0.0-0.5) Basophils # 0.010^3/ul (0.0-0.1) Nucleated Red Blood Cells # 0.010^3/ul (0.0-0.0) Sodium Level 145mmol/L (135-144) Potassium Level 4.3mmol/L (3.5-5.1) Chloride Level 104mmol/L (97-110) Carbon Dioxide Level 28mmol/L (21-31) Anion Gap 17 (8-16) Blood Urea Nitrogen 18mg/dl (7-20) Creatinine 0.90mg/dl (0.44-1.00) Glucose Level 171mg/dl (70-220) Calcium Level 9.4mg/dl (8.4-10.2) Test 02/19/17 07:40 02/19/17 12:00 Bedside Glucose 143mg/dL (70-220) 201mg/dL (70-220) DOMINIQUE MATHEW Feb 19, 2017 16:30
== END 2017-02-19 16:28 | disposition home or self-care (01) | DRG 872 ==
LOC: E/R 19:01 → UNDOADMIN 23:51 → MS4 23:51 → PP2 02-18 19:35
PROVIDERS: ADMIT Family Medicine; ATTEND Family Medicine
DX: A41.9 Sepsis, unspecified organism (principal); N17.9 Acute kidney failure, unspecified; E11.9 Type 2 diabetes mellitus without complications; N39.0 Urinary tract infection, site not specified; I10 Essential (primary) hypertension; B96.20 Unspecified Escherichia coli [E. coli] as the cause of diseases classified elsewhere; E83.42 Hypomagnesemia; Z79.4 Long term (current) use of insulin
CPT/HCPCS: 71010; 74177; 80048; 80053; 80061; 81001; 82150; 82962; 83036; 83605; 83690; 83735; 84100; 84443; 84484; 85025; 85610; 85730; 87040; 87086; 93005; 96365; 96366; 96372; 96375; C9113; J0696; J0744; J1815; J3370; J3475; J7030; Q9967

== ENCOUNTER 2017-09-22 22:55 | Inpatient (IN) | END 2017-09-25 17:45 | disposition home or self-care (01) | DRG 690 ==

== ENCOUNTER 2018-04-18 14:27 | Emergency (ER) | END 2018-04-18 15:55 | disposition home or self-care (01) ==